=== PATIENT | female | born 1970 | race Two or more races ===

== ENCOUNTER → 2019-05-22 | Emergency (ER) | payer MEDICAID | END | disposition left against medical advice (07) | LOC: ER 23:02 | DX: R10.9 Unspecified abdominal pain (principal); Z53.21 Procedure and treatment not carried out due to patient leaving prior to being seen by health care provider ==

== ENCOUNTER 2022-10-26 12:11 | Emergency (ER) | payer MEDICAID ==
[~2022-10-26] VITALS: Ht 154.9 cm; Wt 74.0 kg
[2022-10-26 14:18] LABS: Urine Bacteria FEW /hpf (None Seen); Urine Blood Negative /uL (Negative); Urine Mucus FEW (None Seen); Urine Specific Gravity 1.014 (1.001-1.035); Urine WBC 21 /hpf (0 - 5)
[2022-10-26] MEDS ORDERED: ACETAMINOPHEN 500 MG TAB PO ONE (14:45)
[2022-10-26] MEDS ORDERED: cefTRIAXone SOD 1,000 MG VL IM ONE (15:00)
[2022-10-26] MEDS ORDERED: BACDST PO (15:13)
[2022-10-26] MEDS ORDERED: ACET-1080 PO (15:13)
[2022-10-26 15:24] VITALS: BP 150/87
== END 2022-10-26 15:26 | disposition home or self-care (01) ==
LOC: ER 12:11
DX: N39.0 Urinary tract infection, site not specified (principal); M79.10 Myalgia, unspecified site; R07.89 Other chest pain; E11.9 Type 2 diabetes mellitus without complications; I10 Essential (primary) hypertension; F17.210 Nicotine dependence, cigarettes, uncomplicated; Z79.899 Other long term (current) drug therapy; Z20.822 Contact with and (suspected) exposure to COVID-19
CPT/HCPCS: 36415; 71046; 81001; 87426; 87804; 96372; 99284; J0696

== ENCOUNTER 2024-10-05 05:37 | Emergency (ER) | payer MEDICAID ==
[~2024-10-05] VITALS: Ht 152.4 cm; Wt 74.2 kg
[~2024-10-05 05:37] MED LIST: ACET-1080 PO; BACDST PO
[2024-10-05] MEDS ORDERED: HYDR-5028 PO (07:48)
[2024-10-05] MEDS ORDERED: TRIO1TP EX (07:48)
[2024-10-05] MEDS ORDERED: PRED20TA2 PO (07:48)
--- NOTE | 2024-10-05 07:48 | ED.PDOC ---
History of Present Illness(SKN HPI Comments This is a pleasant 53-year-old female that presents with a chief complaint of a skin rash x 3 days. Rash is located to the anterior neck and is described as pruritic and dry in te xture Has tried [id number] cetirizine with minimal improvement Patient reports having same symptoms 6 months ago and was given an ointment by PCP that helped but does not recall Up-to-date on vaccines Denies that the rash is painful, just itchy Denies ever having this before Patient denies any fever, cough, difficulty swallowing, or shortness of breath Denies fever chills night sweats nausea vomiting diarrhea Denies persistent loss of appetite nor unintentional weight loss over the past 3 months Denies history of STI Denies cough and cold-like symptoms Denies recent travel Denies sick contact with similar rash Denies new topical creams/lotions/shampoos/detergents Denies noticing any insects Denies bruising bleeding anywhere Denies chronic skin issues or family history of skin issues Chief Complaint: Rash Time Seen by MD: 07:22 History of Present Illness: Nurses Notes, Medications, Allergies Allergies: Coded Allergies: NO KNOWN ALLERGIES (Unverified , 06/27/20) Home Meds Active Scripts Hydroxyzine HCl (Hydroxyzine Hydrochloride) 10 Mg Tab, 10 MG PO BIDP PRN for 10 Days, #20 TAB 0 Refills As needed for itchiness Prov:ZAIRA DUKES NP 10/05/24 Triamcinolone Acetonide (Triamcinolone Acetonide) 0.1 % Cre, 1 APPLIC EX BID for 5 Days, #60 GRAMS 0 Refills Prov:ZAIRA DUKES NP 10/05/24 Prednisone (Prednisone) 20 Mg Tab, 60 MG PO DAILY for 5 Days, #15 TAB 0 Refills Prov:ZAIRA DUKES NP 10/05/24 Acetaminophen (Tylenol 8 Hour Arthritis) 650 Mg Tab, 650 MG PO TID, #30 TAB Prov:TERRELL WILLINGHAM 10/26/22 Sulfamethoxazole W/Trimethopri (Bactrim Ds Tablet) 1 Tab Tb, 1 TAB PO BID for 10 Days, #20 TAB Prov:TERRELL WILLINGHAM 10/26/22 Information Source: Patient Mode of Arrival: Ambulatory Past Medical History PAST MEDICAL HISTORY: DM, HTN Surgical History: Denies all surgeries [employer] History: Denies all [employer]IST Hx Family History Family History: Reviewed,noncontributory to illness, Family hx of HTN Social History Smoker: Cigarettes, Less Than 1 Pack/Day Alcohol: Rarely Drugs: Marijuana Lives In: Home All Other Systems: Reviewed and Negative (Per HPI) Physical Exam General Appearance: No Apparent Distress, Normal HEENT: Head (Normocephalic), Normal ENT Inspection, Pharynx Normal, Other (Anterior neck: Erythematous rash. Minor diffuse maculopapular rash. Nont marino to palpation. Dry and texture. No excoriation. No open wounds) Neck: Full Range of Motion, Non-Tender, Normal, Normal Inspection Respiratory: Chest Non-Tender, Lungs Clear, No Accessory Muscle Use, No Re spiratory Distress, Normal Breath Sounds Cardiovascular: No Edema, No JVD, No Murmur, No Gallop, Normal Peripheral Pulses, Regular Rate/Rhythm Breast Exam: Deferred Gastrointestinal: No Organomegaly, Non Tender, No Pulsatile Mass, Normal Bowel Sounds, Soft Genitalia: Deferred Pelvic: Deferred Rectal: Deferred Extremities: No calf tenderness, Normal capillary refill, Normal inspection, Normal range of motion, Non-tender, No pedal edema Musculoskeletal : Apperance: Normal Neurologic: Alert, valve inserter II-XII nml as Tested, No Motor Deficits, Normal Affect, Normal Mood, No Sensory Deficits Cerebellar Function: Normal Reflexes: Normal Skin: Dry, Normal Color, Warm Lymphatic: No Adenopathy Was a procedure done? Was a procedure done?: No Differential Diagnosis (INTG) Differential Diagnosis: Other Differential Diagnosis: Cellulitis, Contact Dermatitis, Urticaria X-Ray, Labs, Meds, VS Vital Signs Date Time Temp Pulse Resp B/P (MAP) Pulse Ox O2 Delivery O2 Flow Rate FiO2 10/05/24 07:53 77 17 98 Room Air 10/05/24 07:53 97.7 77 17 147/77 (100) 97 97.7 10/05/24 05:55 97.8 72 18 147/77 (100) 98 X-Ray, Labs, Meds, VS Comment History and findings consistent with atopic dermatitis Patient stable vital signs stable Trial of triamcinolone as prescribed Advised patient to continue with moisturizer Daily bathing or showering should be limited to about 5 minutes Apply moisturizers soon after bathing to improve skin hydration Use bland moisturizers with few ingredients and without perfumes or fragrances to avoid irritant or allergic reactions Replace soaps and bubble bath and shower gels with nonsoap fragrance free cleansers and neutral to low pH to help prevent irritant or allergic reaction Time of 1ST Reevaluation: 07:30 Reevaluation 1ST: Improved Patient Education/Counseling: Diagnosis, Treatment Family Education/Counseling: Diagnosis, Treatment Departure 1 Departure Time of Disposition: 07:48 Impression: Primary Impression: Dermatitis Disposition: HOME / SELF CARE / HOMELESS Condition: Fair e-Prescriptions Hydroxyzine HCl (Hydroxyzine Hydrochloride) 10 Mg Tab 10 MG PO BIDP PRN for 10 Days, #20 TAB 0 Refills As needed for itchiness Prov: ZAIRA DUKES NP 10/05/24 Triamcinolone Acetonide (Triamcinolone Acetonide) 0.1 % Cre 1 APPLIC EX BID for 5 Days, #60 GRAMS 0 Refills Prov: ZAIRA DUKES NP 10/05/24 Prednisone (Prednisone) 20 Mg Tab 60 MG PO DAILY for 5 Days, #15 TAB 0 Refills Prov: ZAIRA DUKES NP 10/05/24 Critical Care Note Critical Care Time?: No Stability Stability form required: No Heart Score Heart Score: Heart Score Response (Comments) Value History N/A 0 EKG N/A 0 Age N/A 0 Risk Factors N/A 0 Troponin N/A 0 Total 0 ZAIRA DUKES NP Oct 05, 2024 07:48
[2024-10-05 07:53] VITALS: BP 147/77; PULSE 77; RESP 17; TEMP 97.7; O2SAT 98
== END 2024-10-05 07:57 | disposition home or self-care (01) ==
LOC: ER 05:37
DX: L30.9 Dermatitis, unspecified (principal); E11.9 Type 2 diabetes mellitus without complications; I10 Essential (primary) hypertension; F17.210 Nicotine dependence, cigarettes, uncomplicated